=== PATIENT | male | born 1970 ===

== ENCOUNTER → 2021-08-21 14:48 | Outpatient (BNVA) | payer OTHER, SELFPAY | PROVIDERS: Referring Provider Family Medicine; Visit Provider Internal Medicine | DX: E11.40 Type 2 diabetes mellitus with diabetic neuropathy, unspecified (principal); E11.65 Type 2 diabetes mellitus with hyperglycemia; E78.5 Hyperlipidemia, unspecified; Z87.891 Personal history of nicotine dependence | CPT/HCPCS: 99204 ==